=== PATIENT | male | born 1940 | race Caucasian/White ===

== ENCOUNTER 2019-04-15 11:52 | Outpatient (CLI) | payer OTHER, SELFPAY ==
--- NOTE | 2019-04-15 11:21 | DI.RAD_ITS ---
SYMPTOM/DIAGNOSIS: LT KNEE PAIN, M25.562 LEFT KNEE: Three views were obtained. There is a small enthesophyte of the superior patella. Cartilaginous joint spaces appear fairly well maintained except for perhaps slight medial patellofemoral cartilaginous joint space narrowing. Mild marginal osteophytes also noted, particularly at the patellofemoral joint. CONCLUSION: Mild DJD of the knee.
== END 2019-04-15 12:12 ==
PROVIDERS: PCP Internal Medicine; Visit Provider Specialist/Technologist Athletic Trainer
DX: M25.562 Pain in left knee (principal); M17.12 Unilateral primary osteoarthritis, left knee
CPT/HCPCS: 73562

== ENCOUNTER → 2019-05-11 11:13 | Outpatient (BNVA) | payer OTHER, SELFPAY | PROVIDERS: PCP Internal Medicine; Referring Provider Internal Medicine; Visit Provider Orthopaedic Surgery | DX: M25.562 Pain in left knee (principal) | CPT/HCPCS: 99201; 99202 ==

== ENCOUNTER 2019-12-08 10:03 | Outpatient (REF) | payer OTHER, SELFPAY ==
[2019-12-08 13:15] LABS: Anion Gap 9.8 mmol/L (3-11); BUN 16 mg/dL (7-18); CO2 28.2 mmol/L (21.0-32.0); CREATININE 0.99 mg/dL (0.70-1.30); Calcium 8.9 mg/dL (8.5-10.1); Chloride 104 mmol/L (98-107); Glucose 140 mg/dL (74-106); Potassium 4.5 mmol/L (3.5-5.1); Sodium 142 mmol/L (136-145)
[2019-12-08 14:39] LABS: Hemoglobin A1C 7.6 % (3.8-5.6)
== END 2019-12-08 10:23 ==
LOC: NCHCN 10:03
PROVIDERS: PCP Internal Medicine; Visit Provider Internal Medicine
DX: I25.10 Atherosclerotic heart disease of native coronary artery without angina pectoris (principal); E78.5 Hyperlipidemia, unspecified; E11.65 Type 2 diabetes mellitus with hyperglycemia
CPT/HCPCS: 80048; 80076; 83036

== ENCOUNTER 2020-10-17 11:24 | Outpatient (REF) | payer OTHER, SELFPAY ==
[2020-10-17 21:42] LABS: Hemoglobin A1C 6.8 % (<5.7)
== END 2020-10-17 11:44 ==
LOC: NCHCN 11:24
PROVIDERS: PCP Internal Medicine; Visit Provider Internal Medicine
DX: E11.65 Type 2 diabetes mellitus with hyperglycemia (principal)
CPT/HCPCS: 83036

== ENCOUNTER 2021-02-07 20:45 | Outpatient (REF) | payer OTHER, SELFPAY ==
[2021-02-07 21:54] LABS: Anion Gap 8.1 mmol/L (3-11); BUN 20 mg/dL (7-18); CO2 28.9 mmol/L (21.0-32.0); CREATININE 0.9 mg/dL (0.70-1.30); Calcium 9.1 mg/dL (8.5-10.1); Calculated LDL 80 mg/dL (<100); Chloride 101 mmol/L (98-107); Cholesterol 145 mg/dL (<200); Glucose 96 mg/dL (74-106); HDL Cholesterol 38 mg/dL (40-60); Sodium 138 mmol/L (136-145); Triglyceride 136 mg/dL (<150)
== END 2021-02-07 20:46 | disposition home or self-care (01) ==
LOC: NCHCN 20:45
PROVIDERS: PCP Internal Medicine; Visit Provider Internal Medicine
DX: E78.5 Hyperlipidemia, unspecified (principal); E11.65 Type 2 diabetes mellitus with hyperglycemia
CPT/HCPCS: 80048; 80061

== ENCOUNTER 2021-09-08 10:52 | Emergency (ER) | payer OTHER, SELFPAY ==
--- NOTE | 2021-09-08 11:00 | RT.EKG_ITS ---
APPROVED REPORT Exam: Resting ECG Reason for Exam: tia? Patient Location: E HR:67 bpm ECG Measurements Heart Rate 67 AXIS NH 191 P 66 QRSd 98 QRS -20 QT 415 T 53 QTc 438 Conclusion Sinus rhythm...normal P axis, V-rate 60- 99
[2021-09-08 11:06] VITALS: BP 161/69; PULSE 94; RESP 17; TEMP 36.6; O2SAT 99
[2021-09-08 11:11] VITALS: RESP 17
--- NOTE | 2021-09-08 11:15 | DI.CT_ITS ---
Exam(s) CT HEAD - STROKE PROTOCOL EXAM: CT HEAD - STROKE PROTOCOL CLINICAL HISTORY: L facial droop. TECHNIQUE: Imaging Protocol: Axial computed tomography images with coronal and sagittal reformatted images were created and reviewed COMPARISON: No exams were available for comparison FINDINGS: There is moderate generalized cerebral atrophy. No evidence of acute intracranial hemorrhage, mass effect, or midline shift. The orbital structures are unremarkable. The temporal bone structures appear intact. Calvarium: Normal. Visualized Paranasal sinuses/Mastoids: Clear. IMPRESSION: No evidence of acute intracranial process. RADIATION DOSE DELIVERED: 782.27mGy.cm Total DLP 782.27mGy.cm Total DLP CTDIvol DATA REPOSITORY: All CT scans at this facility are submitted to the National Radiology Data Registry (NRDR) Dose Index Registry (DIR) with the [employer] ([employer]). RADIATION OPTIMIZATION: All CT scans at this facility use at least one of these dose optimization te chniques: automated exposure control; mA and/or kV adjustment per patient size (includes targeted exa ms where dose is matched to clinical indication); or iterative reconstruction.
[2021-09-08 11:26] LABS: Abs Immature Grans 0.05 10^3/uL (0.0-0.06); Absolute Basophil Count 0.04 10^3/uL (0.0-0.2); Absolute Eosinophil Count 0.45 10^3/uL (0.0-0.7); Absolute Monocyte Count 0.91 10^3/uL (0.1-0.8); Absolute Neutrophil Count 7.39 10^3/uL (1.2-6.7); Basophils % 0.4; Eosinophils % 4.1; HCT 44.1 % (40.0-50.0); HGB 14.1 g/dL (13.5-17.5); Immature Grans % 0.5; MCH 28.8 pg (27.0-33.0); MPV 9.5 fL (8.0-11.0); Monocytes % 8.3; Neutrophils % 67.7; Nucleated RBC 0 %; Platelet Count 203 10^3/uL (130-400); RDW 14.4 % (11.8-14.1); RDW-SD 47.1 fL; WBC 10.92 10^3/uL (4.4-10.8)
[2021-09-08 11:27] LABS: Absolute Lymphocyte Count 2.07 10^3/uL (1.2-3.4)
--- NOTE | 2021-09-08 11:43 | ED.GENADUL_ITS ---
Discharge Plan Disposition Patient Disposition: HOME Condition: Improving Discharge Details Clinical Impression: Left-sided Weber's palsy Primary Care Provider: Karlos Paul ED Provider: Amilcar Kaye Home Meds and New Rx's Prescriptions: New valacyclovir 1 gram tablet 1,000 mg PO TID 7 Days Qty: 21 RF: 0 prednisone 10 mg tablet See Rx Instructions .ROUTE .COMPLEX Qty: 24 RF: 0 Continued omeprazole 10 MG capsule,delayed release(DR/EC) 20 mg PO DAILY RF: 0 metoprolol succinate 25 MG tablet extended release 24 hr 25 mg PO DAILY RF: 0 Dulera 8.8 GM HFA aerosol inhaler 2 puff Inhalation BID RF: 0 amlodipine 5 MG tablet 5 mg PO DAILY Qty: 30 RF: 5 terazosin 5 MG capsule 5 mg PO RF: 0 atorvastatin [Lipitor] 10 MG tablet 10 mg PO RF: 0 aspirin 81 MG tablet,delayed release (DR/EC) 81 mg PO RF: 0 montelukast [Singulair] 10 MG tablet 10 mg PO DAILY RF: 0 albuterol sulfate [Proventil HFA] 1 PUFF HFA aerosol inhaler 0 gm Inhalation DIRECTED PRNRF: 0 Discharge Instructions Instructions: Weber Palsy (ED) Additional Instructions: Please take prednisone as prescribed on a tapering dose until finished. Take valacyclovir three times daily for 1 week. Continue your routine medications. We will affect her managers to set up a follow-up appointment for you in primary care. Return to the ER for any acute concerns. Medical Decision Making 80-year-old male presents with day 3+ of left facial droop. It involves his forehead and is sparing any other focal neurologic findings. Most consistent with Weber's palsy, do feel compelled to rule out intracranial mass patient referred for noncontrast CT scan of the head. Differential diagnosis also would include Lyme disease and Lyme and tick panel sent. CT scan of the head without any acute findings. Laboratories reveal white count of 10, hematocrit 44, platelets 203. Chemistries reassuring, BUN 20, creatinine 1.2. LFTs unremarkable and troponin negative. This is consistent with facial nerve palsy Will treat with a 7-day course of acyclovir and a tapering course of oral prednisone. We will ask care management to arrange a follow-up for the patient in primary care clinic. He is stable and appropriate for discharge to home. HPI General Mode of arrival: ambulatory . Date/Time Provider Initiated Documentation: 09/08/21 10:54 . Limitations to Documentation: no limitations . Information obtained by: patient . History of Present Illness 80 year old M presents to the emergency department with the chief complaint of Isolated left facial droop for 3+ days, described as moderate, Quality is described as constant, and is localized to the face and left. Patient started experiencing this day(s) and it has been constant. No relieving factors improve symptom(s), No exacerbating factors reported . Patient notes other (No arm or leg weakness, no change to speech or gait.); denies chest pain, headaches and syncope. Patient did receive the following treatments prior to arrival, none Related Data Home Medications Medication Instructions Recorded Confirmed albuterol sulfate [Proventil HFA] 0 gm INHALATION DIRECTED PRN 08/13/13 09/08/21 aspirin 81 mg PO 08/13/13 05/11/19 atorvastatin [Lipitor] 10 mg PO 08/13/13 05/11/19 montelukast [Singulair] 10 mg PO DAILY 08/13/13 09/08/21 terazosin 5 mg PO 08/13/13 05/11/19 metoprolol succinate 25 mg PO DAILY tab-cap 04/20/15 09/08/21 omeprazole 20 mg PO DAILY tab-cap 04/20/15 09/08/21 Dulera 2 puff INHALATION BID inhaler 04/22/15 09/08/21 amlodipine 5 mg PO DAILY #30 tab-cap 01/06/16 09/08/21 prednisone See Rx Instructions .ROUTE 09/08/21 .COMPLEX #24 tab valacyclovir 1,000 mg PO TID 7 Days #21 tab 09/08/21 Previous Rx's Medication Instructions Recorded prednisone See Rx Instructions .ROUTE 09/08/21 .COMPLEX #24 tab valacyclovir 1,000 mg PO TID 7 Days #21 tab 09/08/21 Allergies Allergy/AdvReac Type Severity Reaction Status Date / Time neomycin Allergy Intermediate Swelling/Ed Unverified 09/08/21 11:14 mariza Penicillins Allergy Swelling/Ed Unverified 09/08/21 11:14 mariza aspirin AdvReac Mild Nausea Unverified 09/08/21 11:14 General Stated Complaint: CVA/TIA COLE: 2 Review of Systems Narrative: No fall or injury, no headache, no neck pain. No arm or leg weakness or clumsiness. Eight systems reviewed and otherwise negative. Denies tick bite. [facility] Social History Smoking/Tobacco Use Status: Never Smoking risk assessment performed?: Yes Drug use: Never Substance use type: does not use Do you feel safe at home: Yes Do you feel safe in your relationship?: Yes Exam Narrative Exam Narrative: GEN: awake, alert, oriented 3. Pleasant, well groomed, interactive. HEAD: Normocephalic, atraumatic ENT: Mucous membranes moist, oropharynx unremarkable, External ear exam unremarkable EYES: PERRL, EOMI NECK: Full ROM, no LUIS, no menigismus CHEST/RESP: Nontender, clear to auscultation bilateral, no wheeze/rhonchi/rales CARDIOVASCULAR: RRR, no murmur, rub lenka. 2+ Rad pulse bilateral ABDOMEN: Soft, nontender, no mass. +Bowel sounds EXT: Full ROM, no edema, no rash Neuro: Left face droop including forehead. Otherwise grossly normal neurologic exam, conversant, interactive. No other cranial nerve deficits noted. Teadtm-tu-nygr intact. Visual guardado intact to confrontation. Psych: Speech fluent, thoughts congruent, affect normal Course Vital Signs Vital signs: Vital Signs Temperature 36.6 C 09/08/21 11:06 Pulse 94 H 09/08/21 11:06 Respiratory Rate 17 09/08/21 11:06 Blood Pressure 161/69 H 09/08/21 11:06 Pulse Oximetry 99 09/08/21 11:06 Temperature 36.6 C 09/08/21 11:06 Temperature Source Skin 09/08/21 11:06 Pulse 94 H 09/08/21 11:06 Respiratory Rate 17 09/08/21 11:11 Respiratory Effort Non-Labored 09/08/21 11:11 Respiratory Depth Normal 09/08/21 11:11 Blood Pressure 161/69 H 09/08/21 11:06 Blood Pressure Position Sitting 09/08/21 11:06 Pulse Oximetry 99 09/08/21 11:06 Oxygen Delivery Method Room Air 09/08/21 11:06 Oxygen Flow Rate 0 09/08/21 11:06 Pain Level 0 09/08/21 11:06 Lab/Test Results Lab/Test Results: Laboratory Tests Range/Units 09/08/21 11:09 WBC (4.4-10.8) 10^3/uL 10.92 H RBC (4.36-5.78) 10^6/uL 4.90 Hgb (13.5-17.5) g/dL 14.1 Hct (40.0-50.0) % 44.1 MCV (80-95) fL 90.0 MCH (27.0-33.0) pg 28.8 MCHC (32.0-36.0) % 32.0 RDW (11.8-14.1) % 14.4 H Plt Count (130-400) 10^3/uL 203 MPV (8.0-11.0) fL 9.5 Immature Gran % 0.5 Neutrophils % 67.7 Lymphocytes % 19.0 Monocytes % 8.3 Eosinophils % 4.1 Basophils % 0.4 Nucleated RBC % % 0 Absolute Neutrophils (1.2-6.7) 10^3/uL 7.39 H Absolute Lymphocytes (1.2-3.4) 10^3/uL 2.07 Absolute Monocytes (0.1-0.8) 10^3/uL 0.91 H Absolute Eosinophils (0.0-0.7) 10^3/uL 0.45 Absolute Basophils (0.0-0.2) 10^3/uL 0.04
[2021-09-08 11:50] LABS: ALT 24 U/L (16-63); AST 14 U/L (15-37); Albumin 4.1 g/dL (3.4-5.0); Alkaline Phosphatase 80 U/L (46-116); Anion Gap 6.1 mmol/L (3-11); BUN 20 mg/dL (7-18); Bilirubin, Total 0.4 mg/dL (0.2-1.0); CO2 29.9 mmol/L (21.0-32.0); CREATININE 1.2 mg/dL (0.70-1.30); Calcium 9.1 mg/dL (8.5-10.1); Chloride 105 mmol/L (98-107); Estimated GFR 57.96 (mL/min/1.73m2); Glucose 203 mg/dL (74-106); Magnesium 2.1 mg/dL (1.8-2.4); Potassium 3.8 mmol/L (3.5-5.1); Sodium 141 mmol/L (136-145); Total Protein 7.8 g/dL (6.4-8.2)
[2021-09-08 11:51] LABS: Troponin I < 0.05 ng/mL (<0.06)
--- NOTE | 2021-09-08 16:42 | NUR.NOTE ---
referral to cm for follow up with pcp
[2021-09-11 11:29] LABS: Lyme Ab w Rflx to Lyme Confirm Negative (Negative)
[2021-09-11 23:05] LABS: Anaplasma phagocytophilum Negative (Negative); B. miyamotoi PCR Negative (Negative); Babesia divergens/MO-1 Negative (Negative); Babesia duncani Negative (Negative); Babesia microti Negative (Negative); Ehrlichia chaffeensis Negative (Negative); Ehrlichia ewingii/canis Negative (Negative); Ehrlichia muris eauclairensis Negative (Negative)
== END 2021-09-08 12:37 | disposition home or self-care (01) ==
PROVIDERS: Emergency Provider Emergency Medicine; PCP Family Medicine
DX: G51.0 Bell's palsy (principal)
CPT/HCPCS: 36415; 36416; 80053; 82962; 87798; 93005; 99284; 70450; 83735; 84484; 85025; 86618; 93010

== ENCOUNTER 2022-02-09 16:32 | Outpatient (REF) | payer OTHER, SELFPAY ==
[2022-02-09 21:28] LABS: Hemoglobin A1C 7.3 % (<5.7)
== END 2022-02-09 16:33 | disposition home or self-care (01) ==
LOC: NCHCN 16:32
PROVIDERS: PCP Family Medicine; Visit Provider Family Medicine
DX: E11.9 Type 2 diabetes mellitus without complications (principal)
CPT/HCPCS: 83036

== ENCOUNTER 2022-08-01 14:26 | Outpatient (REF) | payer OTHER, SELFPAY | END 2022-08-01 14:27 | disposition home or self-care (01) | LOC: NCHCN 14:26 | PROVIDERS: PCP Family Medicine; Visit Provider Family Medicine | DX: R30.0 Dysuria (principal) | CPT/HCPCS: 87086 ==

== ENCOUNTER 2022-08-08 10:58 | Outpatient (REF) | payer OTHER, SELFPAY ==
[2022-08-08 16:04] LABS: HCT 42.7 % (40.0-50.0); HGB 13.8 g/dL (13.5-17.5); MCH 28.9 pg (27.0-33.0); MCHC 32.3 % (32.0-36.0); MCV 90 fL (80-95); Platelet Count 224 10^3/uL (130-400); RBC 4.77 10^6/uL (4.36-5.78); RDW 14.6 % (11.8-14.1); RDW-SD 47.6 fL; WBC 11.54 10^3/uL (4.4-10.8)
[2022-08-08 16:40] LABS: Anion Gap 6.3 mmol/L (3-11); BUN 14 mg/dL (7-18); CO2 27.7 mmol/L (21.0-32.0); CREATININE 1.2 mg/dL (0.70-1.30); Calcium 8.9 mg/dL (8.5-10.1); Chloride 104 mmol/L (98-107); Glucose 132 mg/dL (74-106); Potassium 4.6 mmol/L (3.5-5.1); Sodium 138 mmol/L (136-145)
== END 2022-08-08 10:59 | disposition home or self-care (01) ==
LOC: NCHCN 10:58
PROVIDERS: PCP Family Medicine; Visit Provider Family Medicine
DX: I95.2 Hypotension due to drugs (principal)
CPT/HCPCS: 80048; 85027

== ENCOUNTER 2022-08-15 22:19 | Outpatient (REF) | payer OTHER, SELFPAY | END 2022-08-15 22:20 | disposition home or self-care (01) | LOC: NCHCN 22:19 | PROVIDERS: PCP Family Medicine; Visit Provider Family Medicine | DX: R30.0 Dysuria (principal) | CPT/HCPCS: 87086 ==

== ENCOUNTER 2022-11-05 15:15 | Outpatient (REF) | payer OTHER, SELFPAY | END 2022-11-05 15:16 | disposition home or self-care (01) | LOC: NCHCN 15:15 | PROVIDERS: PCP Family Medicine; Visit Provider Family Medicine | DX: R30.0 Dysuria (principal) | CPT/HCPCS: 87086 ==

== ENCOUNTER → 2023-02-28 11:10 | Outpatient (BNVA) | payer MEDICARE, SELFPAY | PROVIDERS: PCP Family Medicine; Referring Provider Family Medicine; Visit Provider Nurse Practitioner Gerontology | DX: N40.1 Benign prostatic hyperplasia with lower urinary tract symptoms (principal); R30.0 Dysuria; E11.9 Type 2 diabetes mellitus without complications; Z86.19 Personal history of other infectious and parasitic diseases | CPT/HCPCS: 51798; 81003; 99214 ==

== ENCOUNTER 2023-05-14 02:04 | Outpatient (CLI) | payer MEDICARE, SELFPAY ==
[2023-05-14 22:15] LABS: PSA, Diagnostic 0.6 ng/mL (<=6.5)
== END 2023-05-14 02:05 | disposition home or self-care (01) ==
LOC: LBO 02:04
PROVIDERS: PCP Family Medicine; Visit Provider Nurse Practitioner Gerontology
DX: N40.0 Benign prostatic hyperplasia without lower urinary tract symptoms (principal)
CPT/HCPCS: 36415; 84153

== ENCOUNTER → 2023-05-22 10:45 | Outpatient (BNVA) | payer MEDICARE, SELFPAY | PROVIDERS: PCP Family Medicine; Referring Provider Family Medicine; Visit Provider Nurse Practitioner Gerontology | DX: N40.1 Benign prostatic hyperplasia with lower urinary tract symptoms (principal); R39.89 Other symptoms and signs involving the genitourinary system | CPT/HCPCS: 51798; 81003; 99213 ==

== ENCOUNTER 2023-08-21 13:42 | Outpatient (REF) | payer MEDICARE, SELFPAY ==
[2023-08-21 17:04] LABS: HCT 41.5 % (40.0-50.0); HGB 13.9 g/dL (13.5-17.5); MCH 30.7 pg (27.0-33.0); MCHC 33.5 % (32.0-36.0); MCV 92 fL (80-95); MPV 9.9 fL (8.0-11.0); Platelet Count 219 10^3/uL (130-400); RBC 4.53 10^6/uL (4.36-5.78); RDW-SD 47.3 fL; WBC 12.11 10^3/uL (4.4-10.8)
[2023-08-21 17:30] LABS: ALT 21 U/L (16-63); AST 13 U/L (15-37); Albumin 3.9 g/dL (3.4-5.0); Alkaline Phosphatase 96 U/L (46-116); Anion Gap 6.8 mmol/L (3-11); BUN 18 mg/dL (7-18); Bilirubin, Total 0.5 mg/dL (0.2-1.0); CO2 29.2 mmol/L (21.0-32.0); CREATININE 1.1 mg/dL (0.70-1.30); Calcium 9.8 mg/dL (8.5-10.1); Chloride 101 mmol/L (98-107); Estimated GFR 66.19 (mL/min/1.73m2); Glucose 150 mg/dL (74-106); Potassium 4.1 mmol/L (3.5-5.1); Sodium 137 mmol/L (136-145); Total Protein 7.2 g/dL (6.4-8.2)
== END 2023-08-21 13:43 | disposition home or self-care (01) ==
LOC: NCHCN 13:42
PROVIDERS: PCP Family Medicine; Visit Provider Family Medicine
DX: E11.9 Type 2 diabetes mellitus without complications (principal); I25.118 Atherosclerotic heart disease of native coronary artery with other forms of angina pectoris
CPT/HCPCS: 80053; 85027

== ENCOUNTER → 2023-09-26 07:23 | Outpatient (CLI) | payer MEDICARE, SELFPAY ==
--- NOTE | 2023-09-26 09:08 | DI.RAD_ITS ---
Exam(s) XR ANKLE LT COMPLETE EXAM: XR ANKLE LT COMPLETE CLINICAL HISTORY: bilat Ankle pain/comparison views,m25.572 TECHNIQUE: 2D digital imaging was performed. Three views. COMPARISON: No exams were available for comparison FINDINGS: BONES: No acute fracture is present. No bony destructive lesion is seen. Heel spurs. JOINTS:The ankle mortise is normally aligned. The talar joint spaces maintained. SOFT TISSUE: Edema. Vascular calcifications. IMPRESSION: Heel spurs. DATA REPOSITORY: RADIATION DOSE DELIVERED:
--- NOTE | 2023-09-26 09:08 | DI.RAD_ITS ---
Exam(s) XR ANKLE RT COMPLETE EXAM: XR ANKLE RT COMPLETE CLINICAL HISTORY: bilat ankle pain,m25.571. TECHNIQUE: 2D digital imaging was performed. Three views. COMPARISON: CR XR ANKLE LT COMPLETE from 09/26/2023 FINDINGS: BONES: No acute fracture is present. No bony destructive lesion is seen. Heel spurs. JOINTS: The ankle mortise is normally aligned. Tibiotalar joint space is maintained. SOFT TISSUE: Vascular calcifications. Edema IMPRESSION: Heel spurs. DATA REPOSITORY: RADIATION DOSE DELIVERED:
== END ==
PROVIDERS: PCP Family Medicine; Visit Provider Podiatrist
DX: M25.571 Pain in right ankle and joints of right foot (principal); M25.572 Pain in left ankle and joints of left foot
CPT/HCPCS: 73610

== ENCOUNTER → 2023-11-20 11:23 | Outpatient (BNVA) | payer MEDICARE, SELFPAY | PROVIDERS: PCP Family Medicine; Visit Provider Nurse Practitioner Gerontology | DX: N40.0 Benign prostatic hyperplasia without lower urinary tract symptoms (principal) | CPT/HCPCS: 51798; 99213 ==

== ENCOUNTER → 2023-12-23 09:31 | Outpatient (BNVA) | payer MEDICARE, SELFPAY | PROVIDERS: PCP Family Medicine; Referring Provider Podiatrist; Visit Provider Physical Therapy Assistant | DX: I73.9 Peripheral vascular disease, unspecified (principal) | CPT/HCPCS: 93922 ==

== ENCOUNTER → 2024-01-01 10:26 | Outpatient (BNVA) | payer MEDICARE, SELFPAY | PROVIDERS: PCP Family Medicine; Referring Provider Family Medicine; Visit Provider Podiatrist | DX: M25.571 Pain in right ankle and joints of right foot (principal); M25.572 Pain in left ankle and joints of left foot; B35.3 Tinea pedis; B35.1 Tinea unguium; L60.3 Nail dystrophy; E11.9 Type 2 diabetes mellitus without complications; R09.89 Other specified symptoms and signs involving the circulatory and respiratory systems; R60.0 Localized edema; R20.8 Other disturbances of skin sensation; L65.9 Nonscarring hair loss, unspecified; L60.8 Other nail disorders | CPT/HCPCS: 11721; 99214 ==

== ENCOUNTER 2024-02-20 15:17 | Outpatient (REF) | payer MEDICARE, SELFPAY ==
[2024-02-20 16:16] LABS: COMMENT (LAB VIEW ONLY) 75.41 mg/dL; Microalb ug/mg Crea 9.5 ug/mg Cr
== END 2024-02-20 15:18 | disposition home or self-care (01) ==
LOC: NCHCN 15:17
PROVIDERS: PCP Family Medicine; Visit Provider Family Medicine
DX: E11.9 Type 2 diabetes mellitus without complications (principal)
CPT/HCPCS: 82043; 82570

== ENCOUNTER → 2024-04-01 10:04 | Outpatient (BNVA) | payer MEDICARE, SELFPAY | PROVIDERS: PCP Family Medicine; Referring Provider Family Medicine; Visit Provider Podiatrist | DX: M25.571 Pain in right ankle and joints of right foot (principal); M25.572 Pain in left ankle and joints of left foot; B35.3 Tinea pedis; B35.1 Tinea unguium; I73.9 Peripheral vascular disease, unspecified; L60.3 Nail dystrophy; E11.9 Type 2 diabetes mellitus without complications | CPT/HCPCS: 11721 ==

== ENCOUNTER → 2024-08-05 10:29 | Outpatient (BNVA) | payer MEDICARE, SELFPAY | PROVIDERS: PCP Family Medicine; Referring Provider Family Medicine; Visit Provider Podiatrist | DX: L60.3 Nail dystrophy (principal); B35.1 Tinea unguium; B35.3 Tinea pedis; E11.9 Type 2 diabetes mellitus without complications; I73.89 Other specified peripheral vascular diseases; R60.0 Localized edema; R20.8 Other disturbances of skin sensation | CPT/HCPCS: 11721 ==

== ENCOUNTER 2024-09-14 16:46 | Outpatient (REF) | payer MEDICARE, SELFPAY ==
[2024-09-14 21:14] LABS: Abs Immature Grans 0.06 10^3/uL (0.0-0.06); Absolute Basophil Count 0.05 10^3/uL (0.0-0.2); Absolute Eosinophil Count 0.29 10^3/uL (0.0-0.7); Absolute Lymphocyte Count 2.53 10^3/uL (1.2-3.4); Absolute Monocyte Count 0.85 10^3/uL (0.1-0.8); Basophils % 0.4 %; Eosinophils % 2.6 %; HGB 14.5 g/dL (13.5-17.5); Immature Grans % 0.5 %; Lymphocytes % 22.3 %; MCH 31.1 pg (27.0-33.0); MCHC 33.7 % (32.0-36.0); MCV 92 fL (80-95); MPV 9.8 fL (8.0-11.0); Monocytes % 7.5 %; Neutrophils % 66.7 %; Platelet Count 220 10^3/uL (130-400); RBC 4.66 10^6/uL (4.36-5.78); RDW 14.8 % (11.8-14.1); RDW-SD 50.1 fL; WBC 11.33 10^3/uL (4.4-10.8)
[2024-09-14 21:16] LABS: Absolute Neutrophil Count 7.56 10^3/uL (1.2-6.7)
[2024-09-14 21:23] LABS: COMMENT (LAB VIEW ONLY) 101.66 mg/dL; Microalb ug/mg Crea 11.7 ug/mg Cr
[2024-09-14 21:24] LABS: ALT 20 U/L (16-63); AST 14 U/L (15-37); Albumin 4.3 g/dL (3.4-5.0); Alkaline Phosphatase 86 U/L (46-116); BUN 17 mg/dL (7-18); Bilirubin, Total 0.69 mg/dL (0.2-1.0); CREATININE 1.2 mg/dL (0.70-1.30); Calcium 9.2 mg/dL (8.5-10.1); Chloride 105 mmol/L (98-107); Estimated GFR 59.26 (mL/min/1.73m2); Glucose 110 mg/dL (74-106); LDL CHOLESTEROL 104 mg/dL (<100); Sodium 142 mmol/L (136-145); Total Protein 7.6 g/dL (6.4-8.2)
== END 2024-09-14 16:47 | disposition home or self-care (01) ==
LOC: NCHCN 16:46
PROVIDERS: PCP Family Medicine; Visit Provider Family Medicine
DX: I25.10 Atherosclerotic heart disease of native coronary artery without angina pectoris (principal); E78.5 Hyperlipidemia, unspecified; E11.9 Type 2 diabetes mellitus without complications
CPT/HCPCS: 80053; 83721; 82043; 82570; 85025

== ENCOUNTER → 2024-09-16 09:57 | Outpatient (BNVA) | payer MEDICARE, SELFPAY | PROVIDERS: PCP Family Medicine; Referring Provider Family Medicine; Visit Provider Podiatrist | DX: L84 Corns and callosities (principal); M25.571 Pain in right ankle and joints of right foot | CPT/HCPCS: 99213 ==

== ENCOUNTER → 2024-10-08 10:20 | Outpatient (BNVA) | payer MEDICARE, SELFPAY | PROVIDERS: PCP Family Medicine; Referring Provider Family Medicine; Visit Provider Podiatrist | DX: M76.71 Peroneal tendinitis, right leg (principal); L84 Corns and callosities; M25.571 Pain in right ankle and joints of right foot | CPT/HCPCS: 99213 ==

== ENCOUNTER → 2024-11-18 11:15 | Outpatient (BNVA) | payer MEDICARE, SELFPAY | PROVIDERS: PCP Family Medicine; Visit Provider Nurse Practitioner Gerontology | DX: R39.89 Other symptoms and signs involving the genitourinary system (principal); N40.0 Benign prostatic hyperplasia without lower urinary tract symptoms | CPT/HCPCS: 51798; 99213 ==

== ENCOUNTER → 2024-11-19 11:34 | Outpatient (BNVA) | payer MEDICARE, SELFPAY | PROVIDERS: PCP Family Medicine; Referring Provider Family Medicine; Visit Provider Podiatrist | DX: M76.71 Peroneal tendinitis, right leg (principal); L84 Corns and callosities; M25.571 Pain in right ankle and joints of right foot | CPT/HCPCS: 99213 ==

== ENCOUNTER → 2024-12-09 09:01 | Outpatient (BNVA) | payer MEDICARE, SELFPAY | PROVIDERS: PCP Family Medicine; Referring Provider Family Medicine; Visit Provider Podiatrist | DX: L60.3 Nail dystrophy; B35.1 Tinea unguium; B35.3 Tinea pedis; E11.59 Type 2 diabetes mellitus with other circulatory complications; R09.89 Other specified symptoms and signs involving the circulatory and respiratory systems; R60.0 Localized edema; L65.9 Nonscarring hair loss, unspecified; I83.93 Asymptomatic varicose veins of bilateral lower extremities; R20.8 Other disturbances of skin sensation; R23.8 Other skin changes; L60.2 Onychogryphosis; M76.71 Peroneal tendinitis, right leg | CPT/HCPCS: 11721 ==

== ENCOUNTER → 2024-12-31 10:50 | Outpatient (BNVA) | payer MEDICARE, SELFPAY | PROVIDERS: PCP Family Medicine; Referring Provider Family Medicine; Visit Provider Podiatrist | DX: M76.71 Peroneal tendinitis, right leg (principal); M25.571 Pain in right ankle and joints of right foot; E11.9 Type 2 diabetes mellitus without complications | CPT/HCPCS: 99213 ==

== ENCOUNTER → 2025-03-08 10:41 | Outpatient (BNVA) | payer MEDICARE, SELFPAY | PROVIDERS: PCP Family Medicine; Referring Provider Family Medicine; Visit Provider Podiatrist | DX: M25.571 Pain in right ankle and joints of right foot (principal); M76.71 Peroneal tendinitis, right leg; E11.9 Type 2 diabetes mellitus without complications; I73.89 Other specified peripheral vascular diseases; B35.1 Tinea unguium; B35.3 Tinea pedis; L60.3 Nail dystrophy; R09.89 Other specified symptoms and signs involving the circulatory and respiratory systems; R60.0 Localized edema; L65.9 Nonscarring hair loss, unspecified; R20.8 Other disturbances of skin sensation; R23.8 Other skin changes; L60.2 Onychogryphosis; L60.8 Other nail disorders | CPT/HCPCS: 11721 ==

== ENCOUNTER → 2025-05-05 11:02 | Outpatient (BNVA) | payer MEDICARE, SELFPAY | PROVIDERS: PCP Family Medicine; Referring Provider Family Medicine; Visit Provider Podiatrist | DX: M76.71 Peroneal tendinitis, right leg (principal); M25.571 Pain in right ankle and joints of right foot; E11.9 Type 2 diabetes mellitus without complications; I73.89 Other specified peripheral vascular diseases; B35.1 Tinea unguium; B35.3 Tinea pedis; L60.3 Nail dystrophy | CPT/HCPCS: 99213 ==

== ENCOUNTER → 2025-07-05 10:18 | Outpatient (BNVA) | payer MEDICARE, SELFPAY | PROVIDERS: PCP Family Medicine; Referring Provider Family Medicine; Visit Provider Podiatrist | DX: B35.1 Tinea unguium (principal); B35.3 Tinea pedis; L60.3 Nail dystrophy; E11.9 Type 2 diabetes mellitus without complications; I73.89 Other specified peripheral vascular diseases; R09.89 Other specified symptoms and signs involving the circulatory and respiratory systems; R60.0 Localized edema; R20.8 Other disturbances of skin sensation; I83.93 Asymptomatic varicose veins of bilateral lower extremities; L65.9 Nonscarring hair loss, unspecified; R23.8 Other skin changes; L60.8 Other nail disorders; L60.2 Onychogryphosis | CPT/HCPCS: 11721 ==

== ENCOUNTER 2025-09-16 16:16 | Outpatient (REF) | payer MEDICARE, SELFPAY ==
[2025-09-16 21:50] LABS: ALT 20 U/L (16-63); AST 15 U/L (15-37); Albumin 3.9 g/dL (3.4-5.0); Alkaline Phosphatase 79 U/L (46-116); Anion Gap 10.7 mmol/L (3-11); BUN 17 mg/dL (7-18); Bilirubin, Total 0.7 mg/dL (0.2-1.0); CO2 26.3 mmol/L (21.0-32.0); Calcium 9.0 mg/dL (8.5-10.1); Chloride 100 mmol/L (98-107); Estimated GFR 83.18 (mL/min/1.73m2); Glucose 144 mg/dL (74-106); Potassium 4.1 mmol/L (3.5-5.1); Sodium 137 mmol/L (136-145); Total Protein 6.9 g/dL (6.4-8.2)
[2025-09-16 22:05] LABS: COMMENT (LAB VIEW ONLY) 58.30 mg/dL; Microalb ug/mg Crea 17.0 ug/mg Cr
== END 2025-09-16 16:17 | disposition home or self-care (01) ==
LOC: NCHCN 16:16
PROVIDERS: PCP Family Medicine; Visit Provider Family Medicine
DX: E11.9 Type 2 diabetes mellitus without complications (principal)
CPT/HCPCS: 80053; 82043; 82570

== ENCOUNTER → 2025-11-08 11:07 | Outpatient (BNVA) | payer MEDICARE, SELFPAY | PROVIDERS: PCP Family Medicine; Referring Provider Family Medicine; Visit Provider Podiatrist | DX: L60.3 Nail dystrophy (principal); B35.1 Tinea unguium; E11.59 Type 2 diabetes mellitus with other circulatory complications; I73.89 Other specified peripheral vascular diseases; B35.3 Tinea pedis; R60.0 Localized edema; R09.89 Other specified symptoms and signs involving the circulatory and respiratory systems; R20.8 Other disturbances of skin sensation; I83.93 Asymptomatic varicose veins of bilateral lower extremities; L65.9 Nonscarring hair loss, unspecified; R23.8 Other skin changes; R23.4 Changes in skin texture; L60.2 Onychogryphosis; L60.8 Other nail disorders | CPT/HCPCS: 11721 ==